=== PATIENT | male | born 1990 | race Asian ===

== ENCOUNTER → 2016-12-02 | Outpatient (CLI) | payer OTHER ==
[~2016-12-02] MED LIST: ISOVUE-370 76% 100ML VIAL (Q9967) As Ordered ONE
--- NOTE | 2016-12-02 10:07 | REP ---
CT study of the chest with IV contrast: History: Follow-up pulmonary nodule. Comparison CT abdomen study October 01, 2015 showed a 4 mm nodular opacity in the right middle lobe. There is a chest x-ray from September 03, [address] contrast dose: 75 ml of intravenous Isovue [address] findings: There has been no change in the appearance of the subtle 4 mm nodular opacity in the right middle lobe in the interval since the study done 14 months ago. No other pulmonary nodule is seen. Lung patel are otherwise clear. No pleural or pericardial effusion is seen. No hilar or mediastinal mass or adenopathy is observed. No extrathoracic mass or adenopathy is seen. No adrenal lesion is seen. Visualized upper abdominal structures are unremarkable. No bony lesion is seen. Impression: No active disease. No change in the 4 mm nodule in the right middle lobe in the interval since the prior abdominal CT study. No further imaging is warranted by Fleischner Society criteria. Signed by Mich Pacheco MD 12/02/2016 10:44 A
== END ==
LOC: M RAD 07:42
PROVIDERS: ATTEND Physician Assistant
DX: R91.1 Solitary pulmonary nodule (principal)
CPT/HCPCS: 71260; Q9967